=== PATIENT | female | born 1985 | race Asian ===

== ENCOUNTER 2019-02-20 20:18 | Emergency (ER) | payer SELFPAY ==
[2019-02-20 20:33] VITALS: BP 104/61
--- NOTE | 2019-02-20 21:30 | ER Document Report ---
ED Medical Screen (RME) - General Chief Complaint: Fever Stated Complaint: FEVER/COUGH/CONGESTION/HEADACHE Time Seen by Provider: 02/20/19 21:17 Primary Care Provider: MYRA CLARK MD [Primary Care Provider] - Follow up as needed Mode of Arrival: Ambulatory Information source: Patient Notes: 33-year-old female presents to ED for cough congestion sore throat nasal drainage no fever headache. She states she also has low back pain. Patient denies any past medical history. Any surgical history. She denies smoking drinking or doing any drugs. She states her last menstrual period was February 01, 2019 portable track line marker from [employer] was used for this interview. Patient has stated she does not want the urine test I have greeted and performed a rapid initial assessment of this patient. A comprehensive ED assessment and evaluation of the patient, analysis of test results and completion of medical decision making process will be conducted by an additional ED providers. TRAVEL OUTSIDE OF THE [place] IN LAST 30 DAYS: No - Related Data Allergies/Adverse Reactions: No Known Allergies Allergy (Verified 04/18/14 04:33) Physical Exam - Vital signs Vitals: Temp Pulse Resp BP Pulse Ox 99.0 F 96 20 104/61 97 02/20/19 20:28 02/20/19 20:28 02/20/19 20:28 02/20/19 20:28 02/20/19 20:28 Course - Vital Signs Vital signs: Temp Pulse Resp BP Pulse Ox 99.0 F 96 20 104/61 97 02/20/19 20:28 02/20/19 20:28 02/20/19 20:28 02/20/19 20:28 02/20/19 20:28 Doctor's Discharge - Discharge Referrals: MYRA CLARK MD [Primary Care Provider] - Follow up as needed
== END 2019-02-20 21:53 | disposition left against medical advice (07) ==
LOC: ER 20:18
DX: J02.9 Acute pharyngitis, unspecified (principal); R50.9 Fever, unspecified; R51 Headache; R05 Cough

== ENCOUNTER 2019-02-22 03:11 | Emergency (ER) | payer SELFPAY ==
[2019-02-22 03:57] LABS: APPEARANCE,URINE CLEAR; BILIRUBIN,URINE NEGATIVE (NEGATIVE); COLOR,URINE STRAW; GLUCOSE, URINE NEGATIVE (NEGATIVE); KETONES,URINE TRACE mg/dL (NEGATIVE); LEUKOCYTE ESTERASE,URINE NEGATIVE (NEGATIVE); NITRITE,URINE NEGATIVE (NEGATIVE); PROTEIN,URINE NEGATIVE (NEGATIVE); URINE SPECIFIC GRAVITY 1.001; UROBILINOGEN,URINE NEGATIVE mg/dL (<2.0)
--- NOTE | 2019-02-22 04:39 | ER Document Report ---
Entered by BOSTON REED SCRIBE 02/22/19 0338 Acting as scribe for:CHERRY ROMERO IV, MD ED Medical Screen (RME) - General Stated Complaint: NAUSEA/VOMITING Time Seen by Provider: 02/22/19 03:25 Primary Care Provider: MYRA CLARK MD [Primary Care Provider] - Follow up as needed Notes: Patient is a Mandarin speaking female. There have been multiple attempts with the [employer] however there has been a disconnection with the service multiple times. At this time the patient refuses to be examined. Actively working on [employer]. TRAVEL OUTSIDE OF THE [place] IN LAST 30 DAYS: No - Related Data Allergies/Adverse Reactions: No Known Allergies Allergy (Verified 04/18/14 04:33) Doctor's Discharge - Discharge Referrals: MYRA CLARK MD [Primary Care Provider] - Follow up as needed I personally performed the services described in the documentation, reviewed and edited the documentation which was dictated to the scribe in my presence, and it accurately records my words and actions.
--- NOTE | 2019-02-22 06:36 | ER Document Report ---
Entered by BOSTON REED SCRIBE 02/22/19 0558 Acting as scribe for:CHERRY ROMERO IV, MD ED General - General Chief Complaint: Nausea Stated Complaint: NAUSEA/VOMITING Time Seen by Provider: 02/22/19 03:25 Primary Care Provider: MYRA CLARK MD [Primary Care Provider] - Follow up as needed Information source: Patient, Relative Cannot obtain history due to: Uncooperative Notes: Patient is a 33-year-old Mandarin speaking female that presents to the emergency department this evening. When the patient first arrived today she was very uncooperative, stating that she did not wish to be examined. After several hours the patient does wish to be examined so a Mandarin flosser was obtained via the [employer] line. Unfortunately, the patient has her sister on speaker phone during the entire interaction. It is very difficult to have the patient translated as both the patient and her sister on speaker phone continue to talk over each other despite being asked multiple times for only one to be speaking at the same time. The history that can be obtained from the patient is that her "heart is not feeling good". She goes on to state that she is "stressed emotionally". Patient mentions that she wants to be with her and daughter. When the patient is asked if she knows where her and daughter are the patient states she does not know where they are. During her stay so far the patient has ripped out her IV as well as urinated in the corner of the room despite being taken to the restroom when requested. Patient now requesting "juice and cookies". [place] juice, grape juice, and dmitry crackers have been given to the patient and she does state that she is now willing to stay for urine testing, blood work, and a mental health evaluation. TRAVEL OUTSIDE OF THE [place] IN LAST 30 DAYS: No - Related Data Allergies/Adverse Reactions: No Known Allergies Allergy (Verified 04/18/14 04:33) Past Medical History - General Cannot obtain history due to: Uncooperative - Social History Smoking Status: Unknown if Ever Smoked Family History: Other - unobtainable Patient has suicidal ideation: No Patient has homicidal ideation: No Review of Systems - Review of Systems Notes: Obtaining review of systems is rather difficult due to several factors including the patient and her sister who is on the phone continuing to talk despite the Mandarin flosser stating that he cannot listen to them both at the same time. This goes back and forth for at least 20 minutes. The patient does ment ion that she "stressed emotionally, her heart is not feeling good, and she wants to be where her and daughter are but she does not know where they are" Physical Exam - Vital signs Vitals: Pulse Resp Pulse Ox 123 H 15 100 02/22/19 03:12 02/22/19 03:12 02/22/19 03:12 - Notes Notes: Physical Exam: General: Alert. HEENT: Normocephalic. Atraumatic. PERRL. Extraocular movements intact. Oropharynx clear. Neck: Supple. Non-tender. Respiratory: No respiratory distress. Clear and equal breath sounds bilaterally. Cardiovascular: Tachycardic, regular rhythm. Abdominal: Normal Inspection. Non-tender. No distension. Normal Bowel Sounds. Back: No gross abnormalities. Extremities: Moves all four extremities. Upper extremities: Normal inspection. Normal ROM. Lower extremities: Normal inspection. No edema. Normal ROM. Psychological: Unable to assess, patient endorses "being stressed" Skin: Warm. Dry. Normal color. Course - Vital Signs Vital signs: Temp Pulse Resp BP Pulse Ox 123 H 15 100 02/22/19 03:12 02/22/19 03:12 02/22/19 03:12 - Laboratory Result Diagrams: 02/22/19 06:13 02/22/19 06:13 Laboratory results interpreted by me: 02/22/19 02/22/19 03:40 06:13 Lymph % (Auto) 12.3 L Seg Neutrophils % 83.6 H Urine Ketones TRACE H Urine Blood MODERATE H - Consults SERGIO TRUJILLO Time consulted: 06:00 Reason for consultation: 02/22/19 06:58 ANXIETY, INSOMNIA Consulted provider: will come to ER - Transfer of Care Care transferred to following provider: DR. STONE AT 0650 HOURS Discharge - Discharge Clinical Impression: Anxiety Insomnia Qualifiers: Insomnia type: unspecified Qualified Code(s): G47.00 - Insomnia, unspecified Condition: Fair Disposition: PSYCH HOSP/UNIT Referrals: MYRA CLARK MD [Primary Care Provider] - Follow up as needed I personally performed the services described in the documentation, reviewed and edited the documentation which was dictated to the scribe in my presence, and it accurately records my words and actions.
[2019-02-22 06:43] LABS: ABSOLUTE MONOCYTES (AUTO) 0.3 10^3/uL (0.1-1.4); ABSOLUTE NEUT (AUTO) 6.8 10^3/uL (1.7-8.2); BASOPHILS % (AUTO) 0.2 % (0-2); HEMATOCRIT 37.1 % (36.0-47.0); HEMOGLOBIN 12.8 g/dL (12.0-15.5); LYMPHOCYTES % (AUTO) 12.3 % (13-45); MEAN CORPUSCULAR HEMOGLOBIN 29.8 pg (27.0-33.4); MEAN CORPUSCULAR HGB CONC 34.5 g/dL (32.0-36.0); MEAN CORPUSCULAR VOLUME 86 fl (80-97); MONOCYTES % (AUTO) 3.9 % (3-13); PLATELET COUNT 283 10^3/uL (150-450); SEGMENTED NEUTROPHILS % (AUTO) 83.6 % (42-78); TOTAL CELLS COUNTED % (AUTO) 100 %; WHITE BLOOD COUNT 8.1 10^3/uL (4.0-10.5)
[2019-02-22 06:54] LABS: ALBUMIN 3.4 g/dL (3.5-5.0); ALKALINE PHOSPHATASE 91 U/L (38-126); ANION GAP 14 (5-19); ASPARTATE AMINO TRANSFERASE 68 U/L (14-36); BILIRUBIN,DIRECT 0.2 mg/dL (0.0-0.4); BILIRUBIN,TOTAL 0.4 mg/dL (0.2-1.3); BLOOD UREA NITROGEN 4 mg/dL (7-20); CALCIUM 8.4 mg/dL (8.4-10.2); CARBON DIOXIDE 24 mmol/L (22-30); CHLORIDE 102 mmol/L (98-107); GLUCOSE 136 mg/dL (75-110); POTASSIUM 3.5 mmol/L (3.6-5.0); TOTAL PROTEIN 6.8 g/dL (6.3-8.2)
[2019-02-22 07:34] LABS: FREE T3 2.33 pg/mL (2.77-5.27); FREE T4 (FREE THYROXINE) 1.55 ng/dL (0.78-2.19)
[2019-02-22 07:47] LABS: THYROID STIMULATING HORMONE 0.18 uIU/mL (0.47-4.68)
--- NOTE | 2019-02-22 08:58 | RADIOLOGY REPORT (SQ) ---
EXAM DESCRIPTION: CHEST 2 VIEWS COMPLETED DATE/TIME: 02/22/2019 8:47 am REASON FOR STUDY: Productive cough COMPARISON: None. EXAM PARAMETERS: NUMBER OF VIEWS: two views TECHNIQUE: Digital Frontal and Lateral radiographic views of the chest acquired. RADIATION DOSE: NA LIMITATIONS: none FINDINGS: LUNGS AND PLEURA: There is diffuse airspace disease throughout the right lung field. Most marked in the right upper lobe. There is some volume loss in the right upper lobe minor fissure is elevated superiorly. There is left perihilar and left basilar infiltrate as well. No definite effus ions. MEDIASTINUM AND HILAR STRUCTURES: No masses or contour abnormalities. HEART AND VASCULAR STRUCTURES: Heart normal size. No evidence for failure. BONES: No acute findings. HARDWARE: None in the chest. OTHER: No other significant finding. IMPRESSION: Extensive airspace disease throughout the right lung field a to a lesser extent left per ihilar region and left base. Findings are most consistent with pneumonia. TECHNICAL DOCUMENTATION: JOB ID: [id number] [employer]- All Rights Reserved Reading location - IP/workstation name: [email or web address]
[2019-02-22 09:30] LABS: URINE AMPHETAMINES SCREEN NEGATIVE; URINE BENZODIAZEPINES SCREEN NEGATIVE; URINE COCAINE SCREEN NEGATIVE; URINE MARIJUANA (THC) SCREEN NEGATIVE; URINE METHADONE SCREEN NEGATIVE
[2019-02-22 09:46] LABS: URINE BARBITURATES SCREEN NEGATIVE
[2019-02-22 10:08] LABS: URINE PHENCYCLIDINE SCREEN NEGATIVE
[2019-02-22 10:35] LABS: ARTERIAL BLOOD BASE EXCESS 2.5 mmol/L; ARTERIAL BLOOD H2CO3 1.01 mmol/L (1.05-1.35); ARTERIAL BLOOD HCO3 25.3 mmol/L (20-24); ARTERIAL BLOOD O2 SATURATION 96.1 % (94-98); ARTERIAL BLOOD PCO2 33.7 mmHg (35-45); ARTERIAL BLOOD PH 7.49 (7.35-7.45); ARTERIAL BLOOD PO2 74.5 mmHg (80-100); ARTERIAL BLOOD TOTAL CO2 26.4 mmol/L (21-25)
[2019-02-22 10:38] LABS: ARTERIAL BLOOD FIO2 ROOM AIR
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
[2019-02-22] MEDS ORDERED: LEVOFLOXACIN 750 MG TABLET PO SCH (11:33)
--- NOTE | 2019-02-22 11:35 | ER Document Report ---
Doctor's Note Notes: 02/22/19 11:34 I was asked to evaluate this patient for coughing. Patient is being seen by psychiatry for behavioral health issues. She has a productive cough. Chest x- ray shows pneumonia. Did a blood gas which shows a PO2 of 78. She is hemodynamically stable. She does not meet criteria for inpatient management for pneumonia. Consequently, we will put her on Levaquin orally to manage her pneumonia is an outpatient.
--- NOTE | 2019-02-22 14:25 | ER Document Report ---
Doctor's Note Notes: 02/22/19 14:24 pt refuses to speak with provider stating that she does not feel. Attempted use [email or web address] car salesman services as patient primary language is Mandarin. Patient refuses to speak with car salesman either. Patient has been cleared medically as well as from the mental health team. Provider is attempting to determine whether or not patient is able to get her medications to treat her pneumonia. Call placed to discharge planning to see if they can assist patient with being able to get her medications. 02/22/19 15:[address], patient with stable vital signs. Spoke with discharge planning who will get patient a prescription for doxycycline as this is more affordable and will tell her where to pick it up so that is free of charge given concerns about ability to pay for this medication. Patient does have a friend and family member now at bedside and patient is willing to speak with staff. Patient's entire demeanor has now changed as compared with prior encounter. Patient is willing to speak with staff and speak with her family and friend at bedside. Discussed with patient and family and friend patient's diagnosis and signs or symptoms of worsening that she should return mainly for. Patient stable for discharge at this time with good return precautions discussed. Patient will be given an incentive spirometer as well with instructions for use. 02/22/19 19:33
[2019-02-22] MEDS ORDERED: CEFTRIAXONE INJ 1000 MG VIAL IM ONE (14:38)
[2019-02-22] MEDS ORDERED: LIDOCAINE 1% INJ (10 MG/ML) 10 ML MDV INJ ONE (14:39)
[2019-02-22 15:18] VITALS: BP 107/65
[2019-02-22] MEDS ORDERED: ALBUTEROL SULFATE HFA (90 MCG/PUFF) 8 GM MDI (1 MDI/ER DISP) IH ONE (15:33)
== END 2019-02-22 16:04 | disposition home or self-care (01) ==
LOC: ER 03:11
DX: J18.9 Pneumonia, unspecified organism (principal); F41.9 Anxiety disorder, unspecified; G47.00 Insomnia, unspecified; R11.2 Nausea with vomiting, unspecified
CPT/HCPCS: 99284; 96372; 36415; 84439; 82803; 84443; 85025; 81025; 80053; 81001; 80307; 84481; 71046; J0696; J3490

== ENCOUNTER 2019-02-22 17:18 | Emergency (ER) | payer SELFPAY ==
--- NOTE | 2019-02-22 18:13 | ER Document Report ---
ED Medical Screen (RME) - General Stated Complaint: ALTERED MENTAL STATUS Time Seen by Provider: 02/22/19 18:00 Primary Care Provider: MYRA CLARK MD [Primary Care Provider] - Follow up as needed Mode of Arrival: Ambulatory Information source: Patient - With guilherme Kumar court interpreter Notes: Patient will not answer most questions even with the court interpreter though she does answer are not always appropriate. She was seen and evaluated earlier was discharged home with antibiotics for pneumonia. She can answer questions when she wants to answer but otherwise she gives random answers. I have spoken with the charge nurse and she will have the patient reexamined. I have greeted and performed a rapid initial assessment of this patient. A comprehensive ED assessment and evaluation of the patient, analysis of test results and completion of medical decision making process will be conducted by an additional ED providers. TRAVEL OUTSIDE OF THE [place] IN LAST 30 DAYS: No - Related Data Allergies/Adverse Reactions: No Known Allergies Allergy (Verified 04/18/14 04:33) Past Medical History - Social History Chew tobacco use (# tins/day): No Frequency of alcohol use: None Drug Abuse: None Doctor's Discharge - Discharge Referrals: MYRA CLARK MD [Primary Care Provider] - Follow up as needed
[2019-02-22 21:19] VITALS: BP 109/65
[2019-02-22] MEDS ORDERED: AZITHROMYCIN 250 MG TABLET PO ONE (21:25)
[2019-02-22] MEDS ORDERED: CEFTRIAXONE INJ 1000 MG VIAL IM ONE (21:25)
--- NOTE | 2019-02-22 21:26 | ER Document Report ---
ED General - General Chief Complaint: Altered Mental Status Stated Complaint: ALTERED MENTAL STATUS Time Seen by Provider: 02/22/19 18:00 Primary Care Provider: MYRA CLARK MD [Primary Care Provider] - Follow up as needed Mode of Arrival: Ambulatory Information source: Patient Notes: Ms. Olmos is a 33 yo female w/ no significant past medical history presenting to the emergency department for reevaluation. Patient states that it was cold outside and she did not have a ride therefore she recheck back in. Patient was evaluated extensively yesterday with full set of blood work, chest x-ray, urine as well as seen by [facility]. She refused to speak to medical staff so it was thought that perhaps there was an underlying psychiatric condition causing this. Patient first presented complaining of cough, sore throat and postnasal drip. She was diagnosed with a pneumonia and prescribed doxycycline however given the fact that she did not ever leave the department, the patient has not had her prescription filled. She endorses an ongoing cough and is actively spitting over the side of the bed railing onto the floor. She denies any chest pain, abdominal pain, nausea vomiting or diarrhea. She has no new complaints. TRAVEL OUTSIDE OF THE [place] IN LAST 30 DAYS: No - Related Data Allergies/Adverse Reactions: No Known Allergies Allergy (Verified 04/18/14 04:33) Past Medical History - General Information source: Patient - With [employer] Kumar vice president commercial bank - Social History Smoking Status: Never Smoker Chew tobacco use (# tins/day): No Frequency of alcohol use: None Drug Abuse: None Family History: Reviewed & Not Pertinent, Other - unobtainable Patient has suicidal ideation: No Patient has homicidal ideation: No Review of Systems - Review of Systems Constitutional: See HPI EENT: No symptoms reported Cardiovascular: No symptoms reported Respiratory: See HPI Gastrointestinal: No symptoms reported Genitourinary: No symptoms reported Female Genitourinary: No symptoms reported Musculoskeletal: No symptoms reported Skin: No symptoms reported Hematologic/Lymphatic: No symptoms reported Neurological/Psychological: No symptoms reported Physical Exam - Vital signs Vitals: Temp Pulse Resp BP Pulse Ox 97.7 F 85 19 109/65 96 02/22/19 21:18 02/22/19 21:18 02/22/19 21:18 02/22/19 21:18 02/22/19 21:18 Interpretation: Normal - General General appearance: Appears well, Alert - HEENT Head: Normocephalic, Atraumatic Eyes: Normal Pupils: PERRL - Respiratory Respiratory status: No respiratory distress Chest status: Nontender Breath sounds: Productive cough, Other - Crackles to the right mid lobe. Chest palpation: Normal - Cardiovascular Rhythm: Regular Heart sounds: Normal auscultation Murmur: No - Abdominal Inspection: Normal Distension: No distension Bowel sounds: Normal Tenderness: Nontender Organomegaly: No organomegaly - Back Back: Normal, Nontender - Extremities General upper extremity: Normal inspection, Nontender, Normal color, Normal ROM, Normal temperature General lower extremity: Normal inspection, Nontender, Normal color, Normal ROM, Normal temperature, Normal weight bearing. No: Jonah's sign - Neurological Neuro grossly intact: Yes Cognition: Normal Orientation: AAOx4 [place]av[place] Coma Scale Eye Opening: Spontaneous [place] Coma Scale Verbal: Oriented [place] Coma Scale Motor: Obeys Commands [place] Coma Scale Total: 15 Speech: Normal Motor strength normal: LUE, RUE, LLE, RLE Sensory: Normal - Psychological Associated symptoms: Normal affect, Normal mood - Skin Skin Temperature: Warm Skin Moisture: Dry Skin Color: Normal Course - Re-evaluation Re-evalutation: Patient is generally well-appearing and nontoxic. Vitals within normal limits. Differential diagnosis includes malingering, pneumonia, homelessness, dehydration, sepsis (less likely) 02/22/19 21:41 Patient has no new physical complaints and her vitals are within normal limits. She was fully and extensively evaluated yesterday. I personally reviewed all of her blood work including chest x-ray. Blood work did not show significant leukocytosis or left shift. CMP, UA and U tox were all unremarkable. Patient was noted to have extensive right-sided lung disease with evidence of fluid in the fissure and a right-sided pneumonia. Although she was prescribed doxycycline by the previous provider, , did not get this filled that she never truly left the emergency department. When she went outside and noted that it was told that she had no ride home, she decided to recheck back again. Her examination and evaluation has not since changed. She has no new complaints. I spoke to the patient with the [employer] vice president commercial bank on the phone. Throughout the examination, the patient was somewhat avoidant to converse and required multiple attempts to redirect and pointing at the phone recommending that she answer the questions. Eventually the patient was amenable to answering questions and denied new complaints. I also use the [employer] vice president commercial bank to re commend the patient to call a friend to have them come pick her up. Patient did so while the [employer] vice president commercial bank was on the phone. At that point in time, the patient was able to speak Burundian without any difficulty although broken Burundian. Throughout her stay in the ED, the patient was actively spitting up over the side of the bed and initially refused vitals by nursing staff prior to my evaluation. I insisted while the [employer] vice president commercial bank was on the phone that a full set of vitals would be obtained. 02/22/19 21:43 The patient did not receive any of her appropriate antibiotics. I did medicated the patient with 1 g ceftriaxone IM and p.o. azithromycin 1 g. She was recommended to continue taking the doxycycline as prescribed by . Patient was given return precautions and instructed to follow-up with a primary care doctor as needed. - Vital Signs Vital signs: Temp Pulse Resp BP Pulse Ox 97.7 F 85 19 109/65 96 02/22/19 21:18 02/22/19 21:18 02/22/19 21:18 02/22/19 21:18 02/22/19 21:18 Discharge - Discharge Clinical Impression: Malingering, Normal vaginal delivery Pneumonia Qualifiers: Pneumonia type: due to unspecified organism Laterality: right Lung location: unspecified part of lung Qualified Code(s): J18.9 - Pneumonia, unspecified organism Disposition: HOME, SELF-CARE Instructions: Pneumonia ([facility]) Additional Instructions: You have been evaluated in the emergency department by 2 separate providers in addition to the behavioral crisis team. You have been diagnosed with an pneumonia. You have been prescribed antibiotics by the previous doctor, . He prescribed you doxycycline to take for your pneumonia. You also were given a dose of antibiotics here in the emergency department as you did not leave the emergency department after your first visit and did not get the prescription filled. Please make sure you drink plenty of fluids and stay well- hydrated. It is important that you take the full course of antibiotics as prescribed and do not stop it early, even if you feel better. Referrals: MYRA CLARK MD [Primary Care Provider] - Follow up as needed
== END 2019-02-22 21:46 | disposition home or self-care (01) ==
LOC: ER 17:18
DX: J18.9 Pneumonia, unspecified organism (principal); Z76.5 Malingerer [conscious simulation]; R41.82 Altered mental status, unspecified; R05 Cough; J02.9 Acute pharyngitis, unspecified; R09.82 Postnasal drip
CPT/HCPCS: 99283; 96372; J0696